=== PATIENT | female | born 1935 | race Caucasian/White ===

== ENCOUNTER 2020-08-22 18:29 | Inpatient (IN) | payer MEDICARE, MEDICAID ==
[~2020-08-22] VITALS: Ht 152.4 cm; Wt 56.5 kg
[2020-08-22] MEDS ORDERED: polyethylene glycoL POWDER 17 GM (MIRALAX) PACK PO PRN (19:00)
[2020-08-22] MEDS ORDERED: ENOXAPARIN 100 MG/1 ML (LOVENOX) SYR SC SCH (19:00)
[2020-08-22] MEDS ORDERED: ACETAMINOPHEN 325 MG TABLET PO PRN (19:00)
[2020-08-22] MEDS ORDERED: dilTIAZem DRIP PRE-MIX 125 ML IV SCH (19:00)
[2020-08-22] MEDS ORDERED: ONDANSETRON 4 MG/2 ML (SDV) Z0FRAN IV PRN (19:00)
--- NOTE | 2020-08-22 20:50 | NUR ---
KEITH RIVAS admitted to room 511-1, with an admitting diagnosis of A-FIB WITH RVR, on 08/22/20 from [facility] via EMS, accompanied by EMS STAFF. KEITH RIVAS introduced to surroundings, call light, bed controls, phone, TV, temperature control, lights, meal times, smoking policy, visitor policy, side rail policy, bathrooms and showers. Patient Rights given to patient in the handbook.KEITH RIVAS verbalizes understanding that [facility] is not responsible for the loss or damage to any personal effects or valuables that are kept in the patients posession during their hospitalization.KEITH RIVAS verbalizes understanding of Interdisciplinary Patient Education. Patient and/or family were informed about the Rapid Response Team and its purpose.
[2020-08-22] MEDS ORDERED: dilTIAZem DRIP PRE-MIX 125 ML IV ONE (21:11)
--- NOTE | 2020-08-22 22:45 | NUR ---
EKG OBTAINED TO DETERMINE THAT PATIENT NO LONGER IN A-FIB. CARDIZEM GTT STOPPED AT THIS TIME.
[2020-08-23] MEDS ORDERED: ASPIRIN E.C. 325 MG (ECOTRIN) TABLET PO ONE (01:30)
--- NOTE | 2020-08-23 01:35 | NUR ---
INFORMED DR. LY THAT PATIENT IS NPO, NON-VERBAL AND DOES NOT FOLLOW COMMANDS D/T DEMENTIA AND DO NOT FEEL THAT SHE IS ABLE TO SWALLOW THE ASPIRIN THAT HE ORDERED. ALSO INFORMED HIM THAT PATIENT HAS BEEN OFF OF CARDIZEM SINCE SHORTLY AFTER SHE ARRIVED.
[2020-08-23 04:52] LABS: HEMOGLOBIN 12.1 g/dL (11.5-16.0); MEAN PLATELET VOLUME 12.2 fL (9.0-12.2); WHITE BLOOD COUNT 28.9 10^3/uL (4.3-11.0)
[2020-08-23] MEDS ORDERED: KCL 20 MEQ TAB (K-DUR) PO SCH (06:00)
[2020-08-23] MEDS ORDERED: MAGNESIUM 1 GM/100 ML IVPB 100 ML IV SCH (06:00)
[2020-08-23] MEDS ORDERED: POTASSIUM CL 10MEQ/50ML IVPB 50 ML IV SCH (06:00)
--- NOTE | 2020-08-23 06:30 | NUR ---
RECEIVED CALL FROM PATIENT'S DAUGHTER AND UPDATED HER ON PATIENT CONDITION. RECONFIRMED PATIENT'S DNR STATUS.
[2020-08-23 07:27] LABS: CALCIUM 8.8 MG/DL (8.5-10.1); CREATININE SERUM 2.51 MG/DL (0.60-1.30); MAGNESIUM 2.9 MG/DL (1.6-2.4); PHOSPHORUS 3.4 MG/DL (2.3-4.7); POTASSIUM 3.4 MMOL/L (3.6-5.0)
[2020-08-23] MEDS: LACTOBACILLUS ACIDOPHILUS (PROBIOTIC) CAPSULE PO SCH ×3 (08:52→15:57)
[2020-08-23] MEDS: ENOXAPARIN 60 MG/0.6 ML (LOVENOX) SYR SC SCH (08:52)
[2020-08-23] MEDS: ASPIRIN E.C. 81 MG (ECOTRIN) TAB PO SCH (08:53)
--- NOTE | 2020-08-23 09:33 | History & Physical-Hospitalist ---
History of Present Illness HPI/Chief Complaint Pt is an 84yoCF with a history of advanced dementia who presented to outside ER due to shortness of breath. She is unable to provide any history and is nonverbal at baseline. I called and spoke with daughter who provides most of the history. She states her mom has been in a memory care unit in [place] for 3 years due to dementia but that her functional status has been maintained until the past few days. Over the past few days she has declined significantly and has not been eating or drinking and has really only been laying in bed. Her daughter was with her for 7 hours yesterday prior to evaluation in the ER and noticed she would not move at all and was unresponsive. Daughter is aware that her kidneys are failing as well. She was diagnosed with COVID on 07/30 but has been out of isolation as she has had no fever or cough the entire time. Daughter is requesting that patient be able to discharged back to her NH with hospice and she believes this is the "dying process" that the daughter has seen multiple family members go through. Source: patient Date Seen 08/23/20 Time Seen by a Provider: 09:23 Attending Physician Virginia Nina MD PCP Galen Salazar MD Referring Physician Date of Admission Aug 22, 2020 at 20:40 Home Medications & Allergies Home Medications Reviewed patient Home Medication Reconciliation performed by pharmacy medication reconciliations graphic art technician and/or nursing. Patients Allergies have been reviewed. Allergies Allergies Coded Allergies No Known Drug Allergies (Cigfdfrouw77/24/20) Past Pgryctr-Luzwmf-Mfitaw Hx Past Med/Social Hx: Reviewed Nursing Past Med/Soc Hx Patient Social History Employed/Student: retired Alcohol Use: Denies Use Recreational Drug Use: No Smoking Status: Never a Smoker Physical Abuse Screen: No Sexual Abuse: No Recent Foreign Travel: No Contact w/other who traveled: No Recent Hopitalizations: No Recent Infectious Disease Expo: No Immunizations Up To Date Date of Pneumonia Vaccine: Aug 23, 2018 Date of Influenza Vaccine: Jul 30, 2020 Seasonal Allergies Seasonal Allergies: Yes Past Medical History : No History of Blood Disorders: No Adverse Reaction to Blood Esquivel: No Family History Patient reports no known family medical history. Review of Systems ROS-Unable to Obtain: nonverbal Constitutional: see HPI Physical Exam Physical Exam Vital Signs Vital Signs - First Documented 08/22/20 08/22/20 08/22/20 20:00 20:50 21:15 Temp 36.8 Pulse 73 Resp 19 B/P (MAP) 108/72 Pulse Ox 94 O2 Delivery Room Air Capillary Refill : Height, Weight, BMI Height: '" Weight: lbs. oz. kg; 19.54 BMI Method: General Appearance: No Apparent Distress, Chronically ill, Thin HEENT: PERRL/EOMI, Moist Mucous Membranes Neck: Normal Inspection, Supple Respiratory: Lungs Clear, No Accessory Muscle Use, No Respiratory Distress Cardiovascular: Regular Rate, Rhythm, No Murmur Gastrointestinal: Normal Bowel Sounds, Non Tender, Soft Extremity: Normal Capillary Refill, No Calf Tenderness, No Pedal Edema Neurologic/Psychiatric: Alert, Other (nonverbal, minimal movement, eyes open and blinking though) Skin: Normal Color, Warm/Dry Results Results/Procedures Labs Laboratory Tests 08/23/20 03:40 08/23/20 06:48 Patient resulted labs reviewed. Assessment/Plan Admission Diagnosis A-fib with RVR Admission Status: Inpatient Order (span 2 midnights) Reason for Inpatient Admission: see below Assessment and Plan A-fib with RVR Was on cardizem gtt but now off Rate controlled but still in a-fib Lovenox Cardiology consulted, appreciate recs Acute Renal failure Creatinine 4 yesterday at [facility] Down to 2.51 Continue IVF for now Monitor UOP UTI Continue Rocephin Dementia End stage Family requesting hospice Social work and palliative care consult placed for hopeful DC back to NH with hospice tomorrow DNR Dispo: Overall prognosis is very poor with likely imminent in days to weeks. Plan to DC back to long-term tomorrow with hospice. Daughter will ask NH about recommendations for hospice agency and speak with our palliative nurse tomorrow about choices. Diagnosis/Problems Diagnosis/Problems (1) COVID-19 Status: Acute (2) Dementia Status: Chronic Qualifiers: Dementia type: unspecified type Dementia behavioral disturbance: without behavioral disturbance Qualified Codes: F03.90 - Unspecified dementia without behavioral disturbance (3) Debility Status: Chronic (4) Renal failure Status: Acute Qualifiers: Renal failure chronicity: acute Acute renal failure type: with acute tubular necrosis Qualified Codes: N17.0 - Acute kidney failure with tubular necrosis (5) Elevated troponin Status: Acute (6) UTI (urinary tract infection) Status: Acute Qualifiers: Urinary tract infection type: acute cystitis Hematuria presence: without hematuria Qualified Codes: N30.00 - Acute cystitis without hematuria (7) Atrial fibrillation with RVR Status: Acute Clinical Quality Measures DVT/VTE Risk/Contraindication: Risk Factor Score Per Nursin RFS Level Per Nursing on Admit: 4+=Very High VIRGINIA NINA MD Aug 23, 2020 09:33
--- NOTE | 2020-08-23 11:53 | NUR ---
PT TRANSFERRED TO ROOM 426 VIA BED ACCOMPANIED BY THIS RN, REPORT GIVEN TO Mckenzie PRASAD RN PRIOR TO TRANSFER.
--- NOTE | 2020-08-23 12:00 | NUR ---
RESTING IN BED, EYES OPEN, CALL LIGHT WITHIN REACH, BED ALARM SET, MARTIN PATENT WITH CLEAR YELLOW URINE, IV SITE LEFT FOREARM WITHOUT REDNESS OR SWELLING, ORAL CARE GIVEN, TURNED TO RIGHT SIDE, O2 ON PER NC AT 2 LITERS, O2 SAT 95 PERCENT
--- NOTE | 2020-08-23 12:38 | Consultation-Cardiology ---
HPI-Cardiology Cardiology Consultation Date of Consultation 08/23/20 Date of Admission Time Seen by Provider: 09:23 HPI 84 years old lady with history of advanced dementia, unable to provide any history, history was obtained by reviewing her record. She is a longterm r esident who tested positive for COVID-19 on July 30, 2020. Has been in isolation, has been shortness of breath, patient was transferred for atrial fibrillation with rapid ventricular response, unable to provide any further history. Home Medications & Allergies Allergies: Coded Allergies: No Known Drug Allergies (Unverified , 08/22/20) Home Medication List Reviewed: Yes [id number]-Uvbvkc Hx Patient Social History Employed/Student: retired Alcohol Use: Denies Use Recreational Drug Use: No Smoking Status: Never a Smoker Recent Foreign Travel: No Recent Infectious Disease Expo: No Recent Hopitalizations: No Physical Abuse Screen: No Sexual Abuse: No Immunizations Up To Date Date of Pneumonia Vaccine: Aug 23, 2018 Date of Influenza Vaccine: Jul 30, 2020 Past Medical History Noncontributory Family Medical History Family History: Patient reports no known family medical history. Review of Systems-General Review of Systems Constitutional: see HPI, malaise, weakness, other (unable to provide review of systems) Reviewed Test Results Reviewed Test Results Lab Laboratory Tests Test 08/22/20 22:48 08/23/20 03:40 08/23/20 06:48 Range/Units Troponin I 0.371 *H <0.028 NG/ML White Blood Count 28.9 H 4.3-11.0 10^3/uL Red Blood Count 3.91 3.80-5.11 10^6/uL Hemoglobin 12.1 11.5-16.0 g/dL Hematocrit 39 35-52 % Mean Corpuscular Volume 99 80-99 fL Mean Corpuscular Hemoglobin 31 25-34 pg Mean Corpuscular Hemoglobin Concent 31 L 32-36 g/dL Red Cell Distribution Width 14.5 10.0-14.5 % Platelet Count 159 130-400 10^3/uL Mean Platelet Volume 12.2 9.0-12.2 fL Sodium Level 164 *H 135-145 MMOL/L Potassium Level 3.4 L 3.6-5.0 MMOL/L Chloride Level 126 H 98-107 MMOL/L Carbon Dioxide Level 20 L 21-32 MMOL/L Anion Gap 18 H 5-14 MMOL/L Blood Urea Nitrogen 141 *H 7-18 MG/DL Creatinine 2.51 H 0.60-1.30 MG/DL Estimat Glomerular Filtration Rate 18 BUN/Creatinine Ratio 56 Glucose Level 135 H 70-105 MG/DL Calcium Level 8.8 8.5-10.1 MG/DL Phosphorus Level 3.4 2.3-4.7 MG/DL Magnesium Level 2.9 H 1.6-2.4 MG/DL Physical Exam Physical Exam Vital Signs Vital Signs - First Documented 08/22/20 08/22/20 08/22/20 20:00 20:50 21:15 Temp 36.8 Pulse 73 Resp 19 B/P (MAP) 108/72 Pulse Ox 94 O2 Delivery Room Air Capillary Refill : Height, Weight, BMI Height: '" Weight: lbs. oz. kg; 19.54 BMI Method: General Appearance: No Apparent Distress, Chronically ill, Thin HEENT: PERRL/EOMI, Moist Mucous Membranes Neck: Normal Inspection, Supple Respiratory: Lungs Clear, No Accessory Muscle Use, No Respiratory Distress Cardiovascular: Regular Rate, Rhythm, No Murmur Gastrointestinal: Normal Bowel Sounds, Non Tender, Soft Extremity: Normal Capillary Refill, No Calf Tenderness, No Pedal Edema Neurologic/Psychiatric: Alert, Other (nonverbal, minimal movement, eyes open and blinking though) Skin: Normal Color, Warm/Dry A/P-Cardiology Admission Diagnosis COVID-19 sepsis Atrial fibrillation Advanced dementia Urinary tract infection Assessment/Plan COVID 19 sepsis, tested positive on July 30, 2020 and S2 positive again on August 23, 2020. Managed by primary care team Atrial fibrillation with rapid ventricular response, started on diltiazem drip, heart rate is better. Urinary tract infection, managed by primary care team Advanced dementia Overall poor prognosis, discussed with Dr. Nina her management plan, possible hospice care Clinical Quality Measures DVT/VTE Risk/Contraindication: Risk Factor Score Per Nursin RFS Level Per Nursing on Admit: 4+=Very High JOSE LUIS LY MD Aug 23, 2020 12:38
[2020-08-23] MEDS ORDERED: cefTRIAXone FOR IV USE 1,000 MG in WATER (STERILE) FOR INJECTION 10 ML IV SCH (15:00)
[2020-08-23] MEDS: cefTRIAXone FOR IV USE 1,000 MG in WATER (STERILE) FOR INJECTION 10 ML IV SCH (15:57)
[2020-08-24] MEDS: ENOXAPARIN 60 MG/0.6 ML (LOVENOX) SYR SC SCH (09:19)
[2020-08-24] MEDS: ASPIRIN E.C. 81 MG (ECOTRIN) TAB PO SCH (09:20)
[2020-08-24] MEDS: LACTOBACILLUS ACIDOPHILUS (PROBIOTIC) CAPSULE PO SCH ×3 (09:20→18:18)
--- NOTE | 2020-08-24 12:46 | NUR ---
CM FINALIZED DISCHARGE PLAN: Patient will return to [facility] today with [facility]. Non Emergent ambulance transport form filled out and faxed to [facility]. Clinical information and equipment (oxygen and bed) request faxed to [facility]. Clinical information and discharge information faxed to [facility]. I have spoken to both [facility] and [facility] and [facility] will notify me when the equipment is in place for Bren. Above information discussed with her daughter and ALINA Howard, Primary Care Nurse Raquel RN, Plastic Sheets Finishing Supervisor Zuleyka. Once equipment in place and primary care nurse is ready then the unit educator will call for non emergent ambulance transport. Primary Care Nurse Raquel is going to talk with the patient per her daughter's request and let her know that she will be discharging home today and family will be waiting on her when she gets there.
[2020-08-24] MEDS: cefTRIAXone FOR IV USE 1,000 MG in WATER (STERILE) FOR INJECTION 10 ML IV SCH (15:19)
--- NOTE | 2020-08-24 16:29 | Discharge Summary ---
Discharge Summary Hospital Course Was the Problem List Reviewed?: Yes Problems/Dx: (1) COVID-19 Status: Acute (2) Dementia Status: Chronic Qualifiers: Qualified Codes: F03.90 - Unspecified dementia without behavioral disturbance (3) Debility Status: Chronic (4) Renal failure Status: Acute Qualifiers: Qualified Codes: N17.0 - Acute kidney failure with tubular necrosis (5) Elevated troponin Status: Acute (6) UTI (urinary tract infection) Status: Acute Qualifiers: Qualified Codes: N30.00 - Acute cystitis without hematuria (7) Atrial fibrillation with RVR Status: Acute Hospital Course Date of Admission: Aug 22, 2020 at 20:40 Admission Diagnosis : Acute respiratory failure due to COVID-19 Family Physician/Provider: Galen Salazar MD Date of Discharge: 08/24/20 Discharge Diagnosis: Acute respiratory failure due to COVID-19 Hospital Course: Trixie Jones is an 84 year old female with advanced dementia who was admitted with acute respiratory failure due to COVID-19. She presented with acute renal failure on chronic kidney disease. She was also in atrial fibrillation with rapid ventricular response. She had significant electrolyte abnormalities. Due to her advanced dementia, her family elected to transition her to hospice care. Palliative care was consulted and assisted with her discharge plan. She was discharged back to her snf on hospice. Labs and Pending Lab Test: Microbiology 08/22/20 MRSA Screen - Final, Complete MRSA not isolated Home Meds Active No Active Prescriptions or Reported Medications Assessment/Pt Instructions Discharged to nursing facility on hospice. Discharge Planning: <30 minutes discharge planning Discharge Instructions Discharge Diet: No Restrictions Activity as Tolerated: Yes Discharge Physical Examination Vital Signs Vital Signs Date Time Temp Pulse Resp B/P (MAP) Pulse Ox O2 Delivery O2 Flow Rate FiO2 08/24/20 10:27 Nasal Cannula 1.50 08/24/20 09:00 98 08/24/20 08:20 35.8 61 20 130/62 General Appearance: No Apparent Distress, Chronically ill Respiratory: Lungs Clear, Normal Breath Sounds, No Respiratory Distress Cardiovascular: Regular Rate, Rhythm, No Edema Gastrointestinal: Normal Bowel Sounds, Soft Extremity: Normal Inspection, No Pedal Edema Skin: Normal Color, Warm/Dry Neurologic/Psychiatric: Disoriented, Other (sleeping, easily arousable, does not respond to questions) Allergies: Coded Allergies: No Known Drug Allergies (Unverified , 08/22/20) Discharge Summary Date of Admission Aug 22, 2020 at 20:40 Date of Discharge Discharge Date: Aug 24, 2020 Discharge Time: 16:27 Admission Diagnosis Acute respiratory failure due to COVID-19 Discharge Diagnosis (1) COVID-19 Status: Acute (2) Dementia Status: Chronic Qualifiers: Qualified Codes: F03.90 - Unspecified dementia without behavioral disturbance (3) Debility Status: Chronic (4) Renal failure Status: Acute Qualifiers: Qualified Codes: N17.0 - Acute kidney failure with tubular necrosis (5) Elevated troponin Status: Acute (6) UTI (urinary tract infection) Status: Acute Qualifiers: Qualified Codes: N30.00 - Acute cystitis without hematuria (7) Atrial fibrillation with RVR Status: Acute Clinical Quality Measures DVT/VTE Risk/Contraindication: Risk Factor Score Per Nursin RFS Level Per Nursing on Admit: 4+=Very High BRIAN PATEL MD Aug 24, 2020 16:29
--- NOTE | 2020-08-24 17:46 | NUR ---
Equipment has been delivered to [facility] and so EMS can be called when primary care nurse is ready. Nurse for report is Gin and her phone number is [phone]. Please call her Daughter Lee at [phone] when EMS arrives so that they can be at the nursing facility to [facility] [place]. Above information given to Raquel. No further needs or interventions noted at this time.
--- NOTE | 2020-08-25 01:21 | NUR ---
PT update - I assumed care for this pt at 1900. PT is still unable to comprehend anything, she'll just stare at you when care is provided. I asked pt to squeeze my finger and she couldn't do this bilaterally. PT's bottom is a little red on the left side/coccyx, and barrier cream has been applied and pt is being turned q2 hrs. PT's output from [id number] was 250 mL.Oral/face care is being provided with mouth swab and warm rag to clean her face. Will continue to provide care as ordered. PT is also being transferred by NILAY/JAVI to [facility] in [place] tomorrow between 2:30-3pm
[2020-08-25] MEDS: LACTOBACILLUS ACIDOPHILUS (PROBIOTIC) CAPSULE PO SCH ×2 (08:00→13:00)
[2020-08-25] MEDS: ENOXAPARIN 60 MG/0.6 ML (LOVENOX) SYR SC SCH (09:00)
[2020-08-25] MEDS: ASPIRIN E.C. 81 MG (ECOTRIN) TAB PO SCH (09:00)
--- NOTE | 2020-08-25 12:25 | NUR ---
Continued plan is for patient to dismiss today to [facility] in [place], [place] with [facility] for end of life care. Talked with [facility] shift captmichell Rivera at [phone] and they will pick Bren up around 2:30 p.m. I spoke with [facility] staff to let them know of anticipated picker packer time and we discussed anticipated arrival between 3:30 and 4:30 p.m. They report that they will be in contact with her daughter Lee and I let them know that I would be calling her too. Spoke with Popminnie and let her know the above information. I had talked with her this morning and she requested that her mom have old time gospel music play in her room for added comfort. We located a tablet and was able to stream this for her. Lee and I talked about this and she reported that she is thankful that she has that added comfort as she waits to get back home to them. She denies any further needs or requests at this time.
--- NOTE | 2020-08-25 13:29 | NUR ---
ATTEMPTED TO CALL REPORT TO THE NURSE AT [facility] WITH NO ANSWER, WILL TRY AGAIN SHORTLY.
--- NOTE | 2020-08-25 13:53 | NUR ---
SPOKE WITH MADI, NURSE AT [facility]. UPDATED ON PT CONDITION, PT HAVING INCREASED TIFFANIE EUGENE AND PERIODS OF APNEA SINCE THIS MORNING. WILL CALL THIS RN IF SHE HAS ANY FURTHER QUESTIONS.
[2020-08-25 14:47] VITALS: BP 110/54
--- NOTE | 2020-08-26 15:06 | Physician Query Clarification ---
PQ-Further Specificity Admission/Discharge Admission Date: Aug 22, 2020 at 20:40 Discharge Date: Aug 25, 2020 at 14:47 Dr. Patel, The medical record reflects the following clinical scenario: History/Risk Factors: Covid, acute respiratory failure, UTI, ARF, atrial fib, dementia Clinical Findings: Troponin 0.371 Treatment: treatment of underlying conditions Question: Can you further specify the elevated troponin per the clinical indicators above? Please document a response in the Progress Notes or Discharge Summary. 1. Type 2 OK 2. elevated troponin unknown etiology 3. Other, with explanation of the clinical findings. 4. Clinically undetermined, no explanation for the clinical findings. PHYSICIAN RESPONSE Can you specify per above: 1 Please remember a lack of response to the above will prompt a phone page by CDI/Coding staff. In responding to this query, please exercise your independent professional judgment. The purpose of this communication is to more accurately reflect the complexity of your patients condition. The fact that a question is asked does not imply that any particular answer is desired or expected. Thank you for your timely response to this clarification. Requestors name: Giovanni THIS PHYSICIAN QUERY FORM IS A PERMANENT PART OF THE MEDICAL RECORD GIOVANNI OCASIO Aug 26, 2020 15:06 BRIAN PATEL MD Aug 26, 2020 18:37
--- NOTE | 2020-08-26 15:12 | Physician Query Clarification ---
PQ-Uncertain Diagnosis Admission/Discharge Admission Date: Aug 22, 2020 at 20:40 Discharge Date: Aug 25, 2020 at 14:47 Dr. Patel, The medical record reflects the following clinical scenario: History/Risk Factors: Covid, acute respiratory failure, UTI, acute renal failure, atrial fibrillation, dementia Clinical Findings: T 36.8, P 76, R 20, WBC 28.9 Treatment: IV Ceftriaxone Question: Is Sepsis a clinically valid diagnosis? Sepsis was documented in the Dr. Capps's consult with no further documentation in the medical record. Please document a response in Progress Note or Discharge Summary. 1. Yes, clinically valid, condition resolved. 2. No, condition ruled out. 3. Other, with explanation of clinical findings. 4. Undetermined, no explanation for clinical findings. PHYSICIAN RESPONSE Diagnosis clinically valid: No, conditon ruled out Please remember a lack of response to the above will prompt a phone page by CDI/Coding staff. In responding to this query, please exercise your independent professional judgment. The purpose of this communication is to more accurately reflect the complexity of your patients condition. The fact that a question is asked does not imply that any particular answer is desired or expected. Thank you for your timely response to this clarification. Requestors name: Giovanni THIS PHYSICIAN QUERY FORM IS A PERMANENT PART OF THE MEDICAL RECORD GIOVANNI OCASIO Aug 26, 2020 15:12 BRIAN PATEL MD Aug 26, 2020 18:44
== END 2020-08-25 14:47 | disposition hospice, inpatient (51) | DRG 177 ==
LOC: CSD 20:40 → 4TH 08-23 11:45
PROVIDERS: ADMIT Family Medicine; ATTEND Internal Medicine
DX: U07.1 COVID-19 (principal); J96.00 Acute respiratory failure, unspecified whether with hypoxia or hypercapnia; I21.A1 Myocardial infarction type 2; N39.0 Urinary tract infection, site not specified; N17.9 Acute kidney failure, unspecified; I48.91 Unspecified atrial fibrillation; F03.90 Unspecified dementia, unspecified severity, without behavioral disturbance, psychotic disturbance, mood disturbance, and anxiety; Z66 Do not resuscitate; R79.89 Other specified abnormal findings of blood chemistry; N18.9 Chronic kidney disease, unspecified
CPT/HCPCS: 36415; 80048; 83735; 84100; 84484; 85027; 87081; 93005